=== PATIENT | male | born 1960 | race Caucasian/White ===

== ENCOUNTER 2021-10-31 17:18 | Outpatient (CLI) | payer OTHER, SELFPAY ==
[2021-10-31] MEDS: 0.9% Saline Lock 10 ML Syringe IV (17:44)
[2021-10-31 17:46] VITALS: BP 129/85; PULSE 71; RESP 16; TEMP 36.3; O2SAT 97; BMI 28.1
[2021-10-31 18:37] VITALS: BP 126/79; PULSE 66; RESP 16; TEMP 37.2; O2SAT 98
[2021-10-31 19:19] VITALS: BP 131/75; PULSE 66; RESP 16; TEMP 37.1; O2SAT 100
== END 2021-10-31 19:36 | disposition home or self-care (01) ==
LOC: MS3OUT 17:19 → MS3 17:19
PROVIDERS: Referring Provider Nurse Practitioner Adult Health; Visit Provider Nurse Practitioner Adult Health
DX: Z23 Encounter for immunization (principal); U07.1 COVID-19
CPT/HCPCS: J7050; M0245; Q0245; A4216